=== PATIENT | male | born 1965 | race Caucasian/White ===

== ENCOUNTER 2018-04-01 11:05 | Emergency (ER) | payer SELFPAY ==
[2018-04-01 11:12] VITALS: BP 155/86; PULSE 96; TEMP 98.9; BMI 33.9
[2018-04-01] MEDS ORDERED: SULFAMETHOXAZOLE/TRIMETHOPRIM 800MG/160MG D.S. TABLET PO ONE (11:17)
[2018-04-01] MEDS ORDERED: SULFAMETHOXAZOLE/TRIMETHOPRIM 800MG/160MG D.S. TABLET ONE (11:18)
--- NOTE | 2018-04-01 11:20 | PDOC ---
History of Present Illness - General Chief Complaint: Eye Problem Stated Complaint: LEFT RED-ORBITAL PAIN, SWELLING Time Seen by Provider: 04/01/18 11:07 History Source: Patient Exam Limitations: No Limitations - History of Present Illness Initial Comments: 04/01/18 11:20 52 year old male c/ hx of HTN presents with induration and erythema just superior to the skin to the left orbi. Denies any eye involvement. No pain on extraocular movement. No changes in visual acuity. Noted 3 weeks ago that he small a small pimple on the skin just inferior to his left eyebrow. Attempted to pop the pimple then. Since then, has noted some induration of the skin, but worsened since yesterday. No fevers, or chills. Past History - Past Medical History Allergies/Adverse Reactions: Allergies Allergy/AdvReac Type Severity Reaction Status Date / Time No Known Allergies Allergy Verified 04/01/18 11:06 Home Medications: Ambulatory Orders Aspirin [Aspirin EC] 81 mg PO DAILY 04/01/18 Losartan/Hydrochlorothiazide [Losartan-Hctz 100-25 mg Tab] 1 each PO DAILY 04/01 Metoprolol Succinate [Toprol Xl] 25 mg PO DAILY 04/01/18 Nifedipine ER [Procardia Xl -] 90 mg PO BID 04/01/18 Sulfamethoxazole/Trimethoprim [Bactrim Ds -] 1 tab PO BID #14 tablet 04/01/18 COPD: No HTN: Yes - Suicide/Smoking/Psychosocial Hx Smoking History: Never smoked Have you smoked in the past 12 months: No Information on smoking cessation initiated: No Hx Alcohol Use: No Review of Systems - Review of Systems Able to Perform ROS?: Yes Comments:: 04/01/18 11:22 GENERAL/CONSTITUTIONAL: [No fever or chills. No weakness. No weight change.] HEAD, EYES, EARS, NOSE AND THROAT: [No change in vision. No ear pain or discharge. No sore throat.] CARDIOVASCULAR: [No chest pain or shortness of breath.] RESPIRATORY: [No cough, wheezing, or hemoptysis.] GASTROINTESTINAL: [No nausea, vomiting, diarrhea or constipation. No rectal bleeding.] GENITOURINARY: [No dysuria, frequency, or change in urination.] MUSCULOSKELETAL: [No joint or muscle swelling or pain. No neck or back pain.] SKIN AND BREASTS: Redness and induration just inferior to left eyebrow. NEUROLOGIC: [No headache, vertigo, loss of consciousness, or loss of sensation.] PSYCHIATRIC: [No depression or anxiety.] ENDOCRINE: [No increased thirst. No abnormal weight change.] HEMATOLOGIC/LYMPHATIC: [No anemia, easy bleeding, or history of blood clots.] ALLERGIC/IMMUNOLOGIC: [No hives or skin allergy. No latex allergy.] *Physical Exam - Vital Signs Last Vital Signs Temp Pulse Resp BP Pulse Ox 98.9 F 96 H 18 155/86 99 04/01/18 11:05 04/01/18 11:05 04/01/18 11:05 04/01/18 11:05 04/01/18 11:05 - Physical Exam Comments: 04/01/18 11:22 GENERAL: Awake, alert, and fully oriented, in no acute distress HEAD: No signs of trauma EYES: PERRLA, EOMI, sclera anicteric, conjunctiva clear ENT: Auricles normal inspection, hearing grossly normal, nares patent NECK: Normal ROM, supple, EXTREMITIES: Normal range of motion, no edema. No clubbing or cyanosis. No cords, erythema, or tenderness NEUROLOGICAL: Cranial nerves II through XII grossly intact. Normal speech, normal gait SKIN: Approx 1x1 cm induration, but NO fluctuance. mild erythema inferior to left eyebrow. However, no eyelid involvement. Some periorbital edema (L) noted. Moderate Sedation - Procedure Monitoring Vital Signs: Procedure Monitoring Vital Signs Temperature 98.9 F 04/01/18 11:05 Pulse Rate 96 H 04/01/18 11:05 Respiratory Rate 18 04/01/18 11:05 Blood Pressure 155/86 04/01/18 11:05 O2 Sat by Pulse Oximetry (%) 99 04/01/18 11:05 Medical Decision Making - Medical Decision Making 04/01/18 11:23 Vital Signs Temp Pulse Resp BP Pulse Ox 98.9 F 96 H 18 155/86 99 04/01/18 11:05 04/01/18 11:05 04/01/18 11:05 04/01/18 11:05 04/01/18 11:05 This is cellulitis, but NOT orbital cellulitis. No ocular involvement. No evidence of abscess at this time. Bactrim PO x 7 days. Follow up with optho. Heat packs PRN. *DC/Admit/Observation/Transfer Diagnosis at time of Disposition: Cellulitis Qualifiers: Site of cellulitis: face Qualified Code(s): L03.211 - Cellulitis of face - Discharge Dispostion Disposition: HOME Condition at time of disposition: Good Decision to Admit order: No - Prescriptions Prescriptions: Sulfamethoxazole/Trimethoprim [Bactrim Ds -] 1 tab PO BID #14 tablet - Referrals Referrals: Benigno Espino MD [Staff Physician] - - Patient Instructions Printed Discharge Instructions: DI for Cellulitis -- Adult Additional Instructions: Please take 650 mg tylenol every 4 hours as needed for pain. For your face, take a picture once a day with your cell phone to keep track of its progress. You have a skin infection that requires antibiotics. Take 1 tablet of bactrim every 12 hours for 7 days. You may use warm packs on the face to help with the swelling. If you notice that the swelling has not improved after the antibiotics, please make an appointment with your doctor or eye doctor. - Post Discharge Activity
== END 2018-04-01 11:30 | disposition home or self-care (01) ==
LOC: FER 11:05
DX: L03.211 Cellulitis of face (principal); I10 Essential (primary) hypertension; Z79.82 Long term (current) use of aspirin
CPT/HCPCS: 99282-25

== ENCOUNTER 2021-09-05 19:00 | Emergency (ER) | payer OTHER ==
[2021-09-05] MEDS ORDERED: SODIUM CHLORIDE 1,000 ML IV SCH (19:15)
[2021-09-05 19:29] VITALS: BMI 42.5
[2021-09-05 19:47] LABS: BASO % 0.8 % (0-2.0); EOS % 2.5 % (0-4.5); HEMATOCRIT 40.5 % (35.4-49); HEMOGLOBIN 13.4 GM/dL (11.7-16.9); LYMPH % 24.3 % (8-40); MCH 28.7 pg (25.7-33.7); MEAN CELL VOLUME 86.9 fl (80-96); MEAN PLT VOLUME 7.7 fl (7.5-11.1); NEUT % 63.4 % (42.8-82.8); PLATELET COUNT 357 10^3/uL (134-434); RBC 4.66 M/mm3 (4.00-5.60); RDW 14.1 % (11.9-15.9); WHITE BLOOD COUNT 8.6 K/mm3 (4.0-10.0)
[2021-09-05 19:57] LABS: INR 1.18 (0.83-1.09); PROTHROMBIN TIME (PATIENT) 13.6 SEC (9.7-13.0)
[2021-09-05 19:59] LABS: ACTIVATED PTT 29.7 SECONDS (25.2-36.5)
[2021-09-05 20:13] LABS: CALCIUM 8.7 mg/dL (8.5-10.1)
[2021-09-05 20:14] LABS: ALBUMIN 3.5 g/dl (3.4-5.0)
[2021-09-05 20:15] LABS: BLOOD UREA NITROGEN 23.1 mg/dL (7-18)
[2021-09-05 20:17] LABS: CREATININE 1.3 mg/dL (0.55-1.3)
[2021-09-05 20:19] LABS: TOT PROT 6.5 g/dl (6.4-8.2)
[2021-09-05 20:20] LABS: BILIRUBIN,TOTAL 0.7 mg/dL (0.2-1)
[2021-09-05] MEDS ORDERED: DEXAMETHASONE SOD PHOSPHATE 10 MG/1 ML VIAL IVPUSH ONE (22:15)
[2021-09-05 23:47] VITALS: PULSE 58
[2021-09-06 00:44] VITALS: BP 130/78; TEMP 98.1
[2021-09-06] MEDS ORDERED: DEXAMETHASONE SOD PHOSPHATE 10 MG/1 ML VIAL IVPUSH SCH (04:00)
== END 2021-09-06 01:03 | disposition short-term general hospital (02) ==
LOC: JER 19:00
DX: G93.89 Other specified disorders of brain (principal)
CPT/HCPCS: 36415; 70450-TC; 70553-TC; 80053; 80061; 82550; 82553; 83036; 84484; 85025; 85610; 85730; 86850; 86900; 86901; 93005; 93010; 99285-25; C9803-CS; U0003; U0005